=== PATIENT | male | born 1950 | race Caucasian/White ===

== ENCOUNTER → 2024-09-27 15:02 | Outpatient (REF) | payer OTHER, SELFPAY | LOC: MRI 3T 15:02 | PROVIDERS: ATTENDING PHYSICIAN Surgery; FAMILY PHYSICIAN Family Medicine | DX: R97.20 Elevated prostate specific antigen [PSA] (principal) | CPT/HCPCS: 72197; A9575 ==

== ENCOUNTER 2024-10-05 13:20 | Emergency (ER) | payer OTHER, SELFPAY ==
[2024-10-05 13:31] VITALS: BP 132/63
--- NOTE | 2024-10-05 14:38 | ED.GENMED ---
History of Present Illness
General
Chief Complaint: Skin Surface Trauma
Source: patient
Exam Limitations: none
Time Seen by Provider: 10/05/24 14:15
Nursing documentation reviewed up to this point in time: agreed with
History of Present Illness
History of Present Illness:
74-year-old male with history as documented presents with a bleeding varicose vein. Patient was taking off his boots and scratched a varicose vein on his medial right ankle and it was bleeding and he had trouble stopping it and so he came to the ER
for assessment. No other issues. He is not on blood thinners.
Past History
Past History
ED Past Medical History: CVA, GERD, HTN, NIDDM, Psychiatric (depression), Other (chronic back pain) and Other (Pericarditis with pericardial effusion requiring pericardiocentesis 2007)
Social History
Tobacco: Non-smoker
Alcohol: None
Drug: None
Personal:
Living: with family
Review of Systems
Review of Systems
All Other Systems: ROS reviewed and negative except as documented in HPI and ROS
Skin: Reports other (Bleeding varicose vein)
Phy Exam
Physical Exam
Physical Exam:
General: Well appearing and non-toxic
HEENT: protecting airway
Neck: appears supple
CV: No evidence of cyanosis
Resp: No accessory muscle use
Abd: Non-distended
Extremities: No deformities, no significant edema
Neuro: Alert
Psych: Normal affect
Skin: Punctate bleeding varicose vein right medial ankle with slow ooze no pulsatile bleeding
Scores
Heart Failure Risk
Heart Failure Risk Score: Not Applicable
Heart Score for Chest Pain Patients
STEMI patient?: Not applicable
Withdrawal Assessment of Alcohol
Withdrawal Assessment Completed?: Not applicable
Course
Vital Signs
Initial and Last Documented VS:
Initial Vital Signs
Temp Pulse Resp BP Pulse Ox
36.6 C 76 18 132/63 98
12/24/24 13:31 10/05/24 13:31 10/05/24 13:31 10/05/24 13:31 10/05/24 13:31
Last Documented Vital Signs
Temp Pulse Resp BP Pulse Ox
36.6 C 76 18 132/63 98
10/05/24 13:31 10/05/24 13:31 10/05/24 13:31 10/05/24 13:31 10/05/24 13:31
Procedures
Laceration Closure
Right Ankle:
Status of Wound: clean
Size of Wound in cm: 0.5
Description of Wound Edges: other (Bleeding varicose vein)
Preparation: cleaned with saline
Anesthesia: 1% Lidocaine with epi
Revision/Debridement: routine- no revision
Type of Closure: single layer closure
Skin Closure Material: other (3-0 Vicryl)
Number of sutures: 1
Additional information:
purse-string suture for hemostasis; clean dressing applied
MDM/Problems Addressed
Differential Diagnosis Includes:
Bleeding varicose vein
MDM/Problems Addressed:
74-year-old male presents with bleeding varicose vein. Achieved hemostasis with single pursestring suture as documented above. Clean dressing applied. Stable for discharge. Spoke about return precautions including signs of infection. All
questions answered.
*Pulse Oximetry
Patient hypoxic: no
*Critical Care Note
Total Time (30-74mins, 75-104mins- exclusive of procedures): Not Applicable
Data Reviewed
Source: patient
ED Attending Note
-
Portions of this chart may have been created with voice recognition software.� Occasional wrong word or��sound alike� substitutions may have occurred due to the inherent limitations of voice recognition software.
Discharge Plan
Departure
Patient Disposition: Home (Routine Discharge)
Date of Disposition: 10/05/24
Time of Disposition: 14:37
Patient with high blood pressure during this ER visit?: No
Discharge Problem:
Bleeding from varicose vein
Instructions: Varicose Veins (DC)
Prescriptions:
No Action
multivitamin [Daily Multiple] 1 EACH tablet
1 ea PO DAILY
mometasone [Nasonex] 17 GM spray,non-aerosol
17 gm NS PRN PRN (Reason: congestion)
aspirin 81 MG tablet,chewable
81 mg PO DAILY
lisinopril [Prinivil] 40 MG tablet
40 mg PO DAILY
quetiapine 25 MG tablet
25 mg PO HS
insulin glargine [Lantus U-100 Insulin] 100 UNIT/ML solution
30 units INJ HS
metoprolol tartrate 100 MG tablet
100 mg PO BID
selenium 200 MCG tablet
200 mcg PO QPM
hydrochlorothiazide 25 MG tablet
25 mg PO DAILY
vitamin E 400 UNIT capsule
400 units PO QPM
metformin 750 MG tablet extended release 24 hr
750 mg PO DAILY
fish oil-dha-epa 1 EACH capsule
1,200 mg PO DAILY
pregabalin 100 MG capsule
100 mg PO BID
lurasidone [Latuda] 20 MG tablet
20 mg PO DAILY
vit C,C-Ya-qhdwl-lutein-zeaxan [PreserVision AREDS-2] 1 EACH capsule
1 cap PO BID
dapagliflozin propanediol [Farxiga] 10 MG tablet
10 mg PO DAILY
evolocumab [Repatha SureClick] 140 MG/ML pen injector
140 mg INJ Q2W
buprenorphine HCl [Belbuca] 900 MCG film
900 mcg BID
exenatide microspheres [Bydureon BCise] 2 MG/0.85 ML auto-injector
2 mg INJ Q7D
oxycodone 10 MG tablet
10 mg PO PRN PRN (Reason: pain)
duloxetine 60 MG capsule,delayed release(DR/EC)
60 mg PO DAILY
sulfamethoxazole-trimethoprim 1 TABLET tablet
1 tab PO BID 4 Days Qty: 8 0RF
Activity Restrictions/Additional Instructions:
Thank you for visiting the Emergency Department at [facility].
1. Please schedule a follow up appointment as directed. Call first thing tomorrow morning to make an appointment.
2. If indicated, please take your medications as instructed and indicated on discharge paperwork.
3. If any of your symptoms do not improve, or persist, or become more severe within 6-12 hours, please return to the emergency department for further care.
4. Please return to the emergency department if you develop a headache, neck pain/stiffness, fever greater than 100.4F, chest pain, shortness of breath, persistent nausea, vomiting, slurred speech, difficulty walking, numbness/tingling, weakness,
signs of infection or any other symptoms that are worrisome to you.
Please call [phone] if you have any questions.
Interventions
Interventions:
*Risk Screen - Suicide Last Done: 10/05/24 13:31
ED-Skin Assessment Last Done: 10/05/24 14:22
Discharge Date and Time
Print Language: CUBAN
[2024-10-05 14:49] VITALS: BP 134/72
== END 2024-10-05 14:51 | disposition home or self-care (01) ==
LOC: EMR 13:20
PROVIDERS: EMERGENCY PHYSICIAN Emergency Medicine; FAMILY PHYSICIAN Family Medicine
DX: I83.891 Varicose veins of right lower extremity with other complications (principal)
CPT/HCPCS: 99283; 12001

== ENCOUNTER 2024-10-31 21:05 | Inpatient (IN) | payer OTHER, SELFPAY ==
[2024-10-31 18:09] VITALS: BP 173/78
[2024-10-31 18:31] VITALS: BMI 23.7
[2024-10-31 18:32] LABS: Glucose - Point of Care 237 mg/dl (70-99)
--- NOTE | 2024-10-31 18:34 | ED.CVA ---
History of Present Illness
General
Chief Complaint: CVA/TIA Symptoms
Source: patient and spouse
Exam Limitations: none
Time Seen by Provider: 10/31/24 18:20
Nursing documentation reviewed up to this point in time: agreed with
Onset of Stroke Symptoms
Onset of symptoms known: No
Time pt last seen normal is known: Yes
Date last time pt seen normal: 10/31/24
History of Present Illness
History of Present Illness:
74-year-old male with history of A-fib on aspirin, IDDM, HTN, Linq implant, UTI, macular degeneration right eye is here for a change in mental state. states he was his 'baseline normal' this morning but when she came home from [place] around
noon he 'started to say stuff that did not make sense, his speech was slow and he had to hold onto things to move around.'
Patient denies headache, no known trauma, denies weakness or numbness in his extremities. Denies chest pain or trouble breathing. Denies abdominal pain. Denies change in vision.
reports Had CVA in 2020, has had intermittent cognitive changes since then, followed by his neurologist in [facility]. More recently has had masticating movements of his mouth and has MRI scheduled 11/08 in [facility].
Pt denies recent fall/trauma,
Past History
Past History
ED Past Medical History: CVA, GERD, HTN, NIDDM, Psychiatric (depression), Other (chronic back pain) and Other (Pericarditis with pericardial effusion requiring pericardiocentesis 2007)
Social History
Tobacco: Non-smoker
Alcohol: None
Drug: None
Personal:
Living: with family
Review of Systems
Review of Systems
Allergies reviewed?: Yes
All Other Systems: ROS reviewed and negative except as documented in HPI and ROS
Constitutional: Denies fever
EENT: Denies sore throat
Respiratory: Denies trouble breathing
Cardiac: Denies chest pain
ABD/GI: Reports anorexia; Denies abdominal pain, nausea, vomiting or diarrhea
: Denies dysuria, frequency or difficulty voiding
Musculoskeletal: Denies edema
Skin: Reports no symptoms
Neurological: Reports other (Masticating movements of mouth); Denies dizzy, headache, weakness or numbness
Phy Exam
Physical Exam
Physical Exam:
GENERAL: No acute distress. A&Ox3.
CONSTITUTIONAL: Afebrile.
EYES: clear, conjunctivae normal
ENMT: moist mucus membranes, Pharynx nl
RESPIRATORY: Regular respirations, nonlabored, lungs clear.
CARDIOVASCULAR: Regular rate and rhythm, no murmurs, no rubs.
GI: Soft, nontender, normal BS
MUSCULOSKELETAL: Moves slowly.no edema well perfused.
SKIN: Warm, dry, pink
PSYCH: Normal mood and affect. Well kept, interactive and appropriate
NEUROLOGIC: Awake, alert and oriented. Speech is a little slow, hesitates prior to answering but answering questions appropriately. Cranials 2 through 12 intact. Finger to nose intact Strength equal throughout. Qpedrj-ai-fstw intact. No focal
neurological deficits
Course
Orders/Labs/Results
Orders:
Orders
10/31/24 18:32
CT Head W/o Iv Contrast Urgent
Comment:
Reason For Exam: change in mental state
10/31/24 18:34
CR Chest - 2 Views Urgent
Comment:
Reason For Exam: change in mental state
10/31/24 18:37
Complete Blood Count/With Diff Urgent
Comprehensive Metabolic Panel Urgent
Lactic Acid Q4H
Comment: CANCEL 2nd LACTIC ACID IF 1st LACTIC ACID IS LESS THAN 2
Blood Culture Q30M
ZABRINA Source: Blood/Venous
Specimen Description:
10/31/24 18:39
Blood Culture Q30M
ZABRINA Source: Blood/Venous
Specimen Description:
10/31/24 18:58
Urinalysis Reflex To Culture Urgent
Date Specimen was Collected: 10/31/24
Time Specimen was Collected: 18:50
10/31/24 20:25
COVID-19 Antigen Urgent
Source: Nasal Swab
Influenza A+B Rapid Molecular Urgent
ZABRINA Source: Nasal Swab
Specimen Description:
10/31/24 20:45
Admit/Transfer Patient As Directed
Co-Sign Provider:
Level of Care: Inpatient admission
Assign to:: Telemetry
Physician / Group: Zeferino
Diagnosis: Change in Mental Status
Reason for Telemetry: CVA/TIA
Date to Stop Telemetry: 11/03/24
Time to Stop Telemetry: 11:00
Reason for Hospitalization: change in mental status
Expected length of stay greater than two midnights?: Yes
ELOS- Estimated Length of Stay in days: 3
I certify the patient meets the requirements for IP care: Yes
10/31/24 20:46
PRN Pain Medication Management As Directed
May give lesser potent ordered pain med per pt: Yes
preference::
Protocol:: Medication orders for pain may be administered in a
manner that supports deferring to patient preference
when the pt is:
- Requesting an ordered lesser potent pain medication.
Least to most potent pain medications are defined
as: acetaminophen < NSAID < tramadol < opioids
(morphine, oxycodone, hydromorphone).
- Requesting a lesser dose of the same medication IF
ORDERED.
- Requesting a less intrusive route of administration
if both routes are prescribed by the provider (PO <
IV).
10/31/24 20:47
NT-proBNP Urgent
Procalcitonin Urgent
PCT Algorithmm Indication: Respiratory
10/31/24 20:52
Code Status As Directed
Resuscitation Status: Full Code
10/31/24 21:00
Flush (0.9% Sodium Chloride) [Flush (Nss)] See Dose Instructions IV PER PROTOCOL
10/31/24 22:45
Lactic Acid Q4H
Comment: CANCEL 2nd LACTIC ACID IF 1st LACTIC ACID IS LESS THAN 2
11/03/24 11:00
DC Protocol for Telemetry ONCE
Abnormal Lab Results
10/31/24 10/31/24 10/31/24
18:31 18:37 18:58
WBC 14.1 H 10^3/uL
(4.8-10.8)
RBC 3.95 L 10^6/uL
(4.70-6.10)
Hgb 11.2 L g/dL
(13.0-18.0)
Hct 33.8 L %
(39.0-52.0)
Abs Immat Gran (auto) 0.1 H 10^3/uL
(0-0.05)
Absolute Neuts (auto) 12.4 H 10^3/uL
(1.4-6.5)
Absolute Lymphs (auto) 0.7 L 10^3/uL
(1.2-3.4)
Neutrophils % 87.4 H %
(42.2-75.2)
Lymphocytes % 5.2 L %
(20.5-51.1)
Chloride 97 L mmol/L
(98-107)
Glucose 230 H mg/dl
(70-99)
Lactic Acid 2.3 H mmol/L
(0.7-2.0)
Urine Glucose 3+ A
(Negative)
SARS-CoV-2 Antigen
POC Glucose 237 H mg/dl
(70-99)
10/31/24
20:25
WBC
RBC
Hgb
Hct
Abs Immat Gran (auto)
Absolute Neuts (auto)
Absolute Lymphs (auto)
Neutrophils %
Lymphocytes %
Chloride
Glucose
Lactic Acid
Urine Glucose
SARS-CoV-2 Antigen Positive A
(Negative)
POC Glucose
10/31/24 18:37
10/31/24 18:37
Vital Signs
Initial and Last Documented VS:
Initial Vital Signs
Temp Pulse Resp BP Pulse Ox
100.1 F 95 18 173/78 95
10/31/24 18:09 10/31/24 18:09 10/31/24 18:09 10/31/24 18:09 10/31/24 18:09
Last Documented Vital Signs
Temp Pulse Resp BP Pulse Ox
100.1 F 88 17 144/58 92
10/31/24 18:09 10/31/24 21:45 10/31/24 21:45 10/31/24 21:00 10/31/24 21:00
Security Operations Engineer consulted with Physician
Security Operations Engineer consulted with physician?: Yes
Name of Physician Consulted: Shane
MDM/Problems Addressed
Differential Diagnosis Includes:
CVA, TIA, dehydration, viral illness, post covid mental change
MDM/Problems Addressed:
74-year-old male with history of A-fib on aspirin, IDDM, HTN, Linq implant, UTI, macular degeneration right eye is here for a change in mental state. states he was his 'baseline normal' this morning but when she came home from [place] around
noon he 'started to say stuff that did not make sense, his speech was slow and he had to hold onto things to move around.'
Patient denies headache, no known trauma, denies weakness or numbness in his extremities. Denies chest pain or trouble breathing. Denies abdominal pain. Denies change in vision. Pt denies recent fall/trauma.
reports he's had a mild cough. Had Covid 10/13. Had CVA in 2020, has had intermittent cognitive changes since then, followed by his neurologist in [facility]. More recently has had masticating movements of his mouth and has MRI
scheduled 11/08 in [facility].
CBC: WBC 14.1 otherwise no clinically significant abnormality
CMP: Blood sugar 230 otherwise unremarkable
U/A neg
7:45 PM:
states pt does not remember talking to his son just before they left to come to ER. She is not comfortable taking him home as 'he definitely had a change'
Head CT showing nothing acute.
patient out of bed and ambulating down hallway slowly but has to hold my hand
states slow pace is his usual but he states he feels unsteady on his feet and feels as if he would fall if I let go of his hands
Most likely viral illness with low grade fever
CXR neg.
Discussed with Dr. Lynn who examined pt
With change in mental state, ataxia, mild Leukocytosis, plan: Admit, Neuro eval and MRI
Hospitalist notified of admission.
*Critical Care Note
Total Time (30-74mins, 75-104mins- exclusive of procedures): Not Applicable
ED Attending Note
-
Portions of this chart may have been created with voice recognition software.� Occasional wrong word or��sound alike� substitutions may have occurred due to the inherent limitations of voice recognition software.
Discharge Plan
Departure
Patient Disposition: Admit
Date of Disposition: 10/31/24
Time of Disposition: 20:07
Admit to: Med/Surg
Presentation/result/management discussed w/ accepting MD/DO: Hospitalist
Condition: Fair
Discharge Problem:
Ataxia, Acute alteration in mental status
Interventions
Interventions:
*Risk Screen - Suicide Last Done: 10/31/24 18:09
*General Assessment Last Done: 10/31/24 18:09
*Neglect/Abuse Screening Last Done: 10/31/24 18:09
ED- Fall Risk Assessment Last Done: 10/31/24 18:32
*ED COVID-19 Vaccine History Last Done: 10/31/24 18:32
ED- Pulmonary Assessment Last Done: 10/31/24 18:44
ED- Neurological Assessment Last Done: 10/31/24 18:44
ED- Cardiac Assessment Last Done: 10/31/24 18:44
ED Swallowing Screen Last Done: 10/31/24 20:15
[2024-10-31 18:50] LABS: % Basophils 0.6 % (0-2); % Eosinophils 2.2 % (0-6); % Immature Granulocytes 0.4 % (0-0.5); % Lymphocytes 5.2 % (20.5-51.1); % Monocytes 4.2 % (1.7-9.3); % Neutrophils 87.4 % (42.2-75.2); Absolute Basophils 0.1 10^3/uL (0-0.2); Absolute Eosinophils 0.3 10^3/uL (0-0.7); Absolute Immature Granulocytes 0.1 10^3/uL (0-0.05); Absolute Lymphocytes 0.7 10^3/uL (1.2-3.4); Absolute Monocytes 0.6 10^3/uL (0.1-0.6); Absolute Neutrophils 12.4 10^3/uL (1.4-6.5); Hematocrit 33.8 % (39.0-52.0); Hemoglobin 11.2 g/dL (13.0-18.0); Mean Corp Hgb Conc. 33.1 g/dL (33.0-37.0); Mean Corpuscular Hgb 28.4 pg (27.0-31.0); Mean Corpuscular Volume 85.6 fL (80.0-94.0); Nucleated Red Blood Cells % 0 % (-); Platelet Count 234 10^3/uL (130-400); Red Blood Cell Count 3.95 10^6/uL (4.70-6.10); Red Cell Dist. Width 13.4 % (11.5-14.5); White Blood Cell Count 14.1 10^3/uL (4.8-10.8)
[2024-10-31 19:00] VITALS: BP 156/66
[2024-10-31 19:05] LABS: Urine Albumin Negative (Neg - Trace); Urine Bilirubin Negative (Negative); Urine Character Clear (Clear); Urine Color Yellow; Urine Glucose 3+ (Negative); Urine Ketone Negative (Negative); Urine Leukocyte Negative (Negative); Urine Nitrite Negative (Negative); Urine Occult Blood Negative (Negative); Urine Specific Gravity 1.005 (<1.030); Urine Urobilinogen Negative (Neg - 1+)
[2024-10-31 19:06] LABS: Lactic Acid 2.3 mmol/L (0.7-2.0)
[2024-10-31 19:11] LABS: ALT (SGPT) 27 U/L (0-50); AST (SGOT) 28 U/L (17-59); Albumin 3.8 g/dl (3.5-5.0); Alkaline Phosphatase 81 U/L (38-126); Blood Urea Nitrogen 17 mg/dl (9-20); Calcium 8.4 mg/dl (8.4-10.2); Carbon Dioxide 30 mmol/L (22-30); Chloride 97 mmol/L (98-107); Estimated Creatinine Clearance 96 ml/min; Glucose 230 mg/dl (70-99); Potassium 4.7 mmol/L (3.5-5.1); Sodium 136 mmol/L (135-145); Total Bilirubin 0.5 mg/dl (0.2-1.3); Total Protein 6.3 g/dl (6.3-8.2); eGFR > 60.00
[2024-10-31 20:10] VITALS: BP 142/64
--- NOTE | 2024-10-31 20:15 | HPS.HSE ---
Family Physician
-
Family Physician: Issa Gaines
Chief Complaint
-
Change in Mental Status
History of Present Illness
Patient is a 74 y/o male past medical history of prior stroke, diabetes, hypertension, hyperlipidemia, tardive dyskinesia and depression who presents with change in mental status. Additional history is obtained from patient's at the bedside.
She notes while watching the [place] game this afternoon he started saying things that did not make sense. She notes his speech seems slow and that he was having to hold onto things while walking around. Patient had COVID a few weeks ago and was
hospitalized a different hospital. notes his cough was improving but got worse last night. Patient reports increased shortness of breath. has also noted increased lower extremity edema. Patient denies fevers, sweats or chills at home but
noted to have a temp of 100.1F upon arrival to the ED.
Medical History
Past Medical History
Past Medical History: Reports Other
Additional Past Medical History:
Stroke
Diabetes Mellitus, Type II
Diabetic Neuropathy
Essential Hypertension
Hyperlipidemia
Chronic Pain with Opioid Dependence
Tardive Dyskinesia
Depression
BPH
Past Surgical History: Reports Other
Additional Past Surgical History:
TURP
Appendectomy
Cholecystectomy
Social History
Tobacco: Non-smoker
Alcohol: None
Living: With Family
Family History
Family History: Not pertinent
Allergies / Home Medications
Allergies reflects when Allergies were last updated in [employer].
Home Medications with original date entered in [employer]
Allergy/Medication List:
Allergies
Allergy/AdvReac Type Severity Reaction Status Date / Time
lamotrigine [From Lamictal] Allergy itchy, Verified 10/31/24 18:09
hives
Penicillins Allergy Unknown Verified 10/31/24 18:09
Home Medications
aspirin 81 mg chewable tablet 81 mg PO DAILY 01/29/13
buprenorphine HCl 900 mcg buccal film (Belbuca) 900 mcg BID Pain 01/17/22
dapagliflozin propanediol 10 mg tablet (Farxiga) 10 mg PO DAILY 01/17/22
evolocumab 140 mg/mL subcutaneous pen injector (Repatha SureClick) 140 mg INJ Q2W 01/17/22
exenatide microspheres 2 mg/0.85 mL subcutaneous auto-injector (Byduredom BCise) 2 mg INJ TERRELL 01/17/22
metformin 750 mg tablet,extended release 24 hr 1,500 mg PO DAILY 01/17/22
pregabalin 100 mg capsule 100 mg PO BID 01/17/22
selenium 200 mcg tablet 200 mcg PO Q48H 01/17/22
vit C 250 mg-vit E 90 mg-zinc 40 mg-copper 1 [id number]-[id number]-wlubup capsule (PreserVision AREDS-2) 1 cap PO BID 01/17/22
vitamin E 268 mg (400 unit) capsule 400 units PO Q48H 01/17/22
duloxetine 60 mg capsule,delayed release 60 mg PO DAILY 01/21/22
atorvastatin 40 mg tablet 40 mg PO HS 10/31/24
cyanocobalamin (vitamin B-12) 500 mcg tablet 500 mcg PO DAILY 10/31/24
deutetrabenazine 6 mg tablet (Austedo) 6 mg PO BID 10/31/24
duloxetine 30 mg capsule,delayed release 30 mg PO HS 10/31/24
finasteride 5 mg tablet 5 mg PO DAILY 10/31/24
hydrocodone 10 mg-acetaminophen 325 mg tablet 1 tab PO Q8HPRN PRN severe pain 10/31/24
lisinopril 40 mg tablet 40 mg PO DAILY 10/31/24
metoprolol succinate 100 mg tablet,extended release 24 hr 100 mg PO DAILY 10/31/24
therapeutic multivitamin 1 tab PO DAILY 10/31/24
trazodone 50 mg tablet 100 mg PO HS 10/31/24
vibegron 75 mg tablet (Gemtesa) 75 mg PO DAILY 10/31/24
Review of Systems
-
A 12 point ROS was completed and negative except as noted: Yes
Constitutional: Denies Fever or Chills
Respiratory: Reports Cough and Trouble Breathing
Cardiac: Denies Chest Pain or Palpitations
Neurological: Reports See HPI
Physical Exam
Vital Signs
Vital Signs
Temp Pulse Resp BP Pulse Ox
100.1 F 90 20 156/66 92
10/31/24 18:09 10/31/24 19:15 10/31/24 19:15 10/31/24 19:00 10/31/24 18:45
Physical Exam
General: Comfortable and Conversant
HEENT: Anicteric and Moist mucous membranes
Respiratory: Rales (Left Base) and Non Labored Respirations
Cardiac: S1/S2 and Regular Rhythm
GI: Soft and Non Tender
Rectal: Deferred by Provider
Musculoskeletal: No Clubbing, No Cyanosis and Other (+2 pitting edema bilateral lower extremity)
Skin: Warm and Dry
Neuro: Awake, Alert, Oriented and Nonfocal/grossly intact
Psych: Calm
Laboratory Results
-
10/31/24 18:37
10/31/24 18:37
Laboratory Results
Lactic Acid 2.3 mmol/L (0.7-2.0) H 10/31/24 18:37
Total Bilirubin 0.5 mg/dl (0.2-1.3) 10/31/24 18:37
AST 28 U/L (17-59) 10/31/24 18:37
ALT 27 U/L (0-50) 10/31/24 18:37
Alkaline Phosphatase 81 U/L (38-126) 10/31/24 18:37
Data Reviewed
-
Diagnostic Radiology: Report Reviewed by me
CT Scan: Report Reviewed by me
Lab Data: Labs Reviewed by me
Impression/Plan
-
Change in Mental Status, suspect TME due to due on-going COVID, possible Pneumonia vs recrudescence of prior stroke
-Check Procalcitonin - If positive start empiric antibiotics
-Trend Lactic Acid
-Check Brain MRI given prior history of stroke, but at this point I have low suspicion for acute stroke
-Monitor mental status
Bilateral Lower Extremity Edema
-Check BNP
-Check lower extremity Doppler
Prior Stroke
-Continue aspirin
Diabetes Mellitus, Type II
-Check HgbA1c
-Hold metformin during hospitalization
-Continue Farxiga
-Patient is also maintained on Bydureon as outpatient
-Monitor sugars and continue coverage insulin
Diabetic Neuropathy
-Continue duloxetine and pregabalin
Essential Hypertension
-Continue lisinopril and metoprolol
Hyperlipidemia
-Continue atorvastatin
Chronic Pain with Opioid Dependence
-Continue buprenorphine
Tardive Dyskinesia
-Continue Austedo
Depression
-Continue Trazodone
BPH s/p TURP
-Continue finasteride
DVT proph: Lovenox
Code Status: Full Code
[2024-10-31 20:51] LABS: COVID-19 Antigen Positive (Negative)
[2024-10-31 21:00] VITALS: BP 144/58
[2024-10-31 21:17] LABS: NT-proBNP 550 pg/ml
[2024-10-31 21:28] LABS: Procalcitonin 0.15 ng/ml (0.0-0.25)
--- NOTE | 2024-10-31 21:58 | W.PN.UPDATE ---
Update Note
Progress Note Update
Attending addendum
Patient was seen independently
74 y/o man with past medical history of:
prior stroke,
diabetes,
hypertension,
hyperlipidemia,
tardive dyskinesia
depression
presents with change in mental status. History is obtained from patient's at the bedside. She states that this afternoon he started saying things that did not make sense. He was hallucinating. She notes his speech seems slow and that he was
having to hold onto things while walking around. He had COVID a few weeks ago and was hospitalized a different hospital. notes his cough was improving but worsened last night. Patient now reports increased shortness of breath. He also has
increased lower extremity edema. He denies fevers, sweats or chills at home but noted to have a temp of 100.1F upon arrival to the ED.
Past Medical History
Stroke
Diabetes Mellitus, Type II
Diabetic Neuropathy
Essential Hypertension
Hyperlipidemia
Chronic Pain with Opioid Dependence
Tardive Dyskinesia
Depression
BPH
TURP
Appendectomy
Cholecystectomy
Physical Exam
General: Comfortable and Conversant, but confused
HEENT: Anicteric and Moist mucous membranes
Respiratory: Rales (Left Base) and Non Labored Respirations
Cardiac: S1/S2 and Regular Rhythm
GI: Soft and Non Tender
Psych: Calm
Impression/Plan
1. Change in Mental Status, differential includes: on-going COVID, possible Pneumonia vs recrudescence of prior stroke
-Check Procalcitonin - If positive start empiric antibiotics
-Trend Lactic Acid
-Check Brain MRI
2. Bilateral Lower Extremity Edema - new issue
-Check BNP
-Check lower extremity Doppler
Please see PA note for full details on
Prior Stroke
Diabetes Mellitus, Type II
Diabetic Neuropathy
Essential Hypertension
Hyperlipidemia
Chronic Pain with Opioid Dependence
Tardive Dyskinesia
Depression
BPH s/p TURP
DVT proph: Lovenox
Code Status: Full Code
[2024-10-31 22:00] VITALS: BP 141/57
[2024-10-31 23:00] VITALS: BP 133/61
[2024-10-31] MEDS: FLUSH (NSS) 1 FLUSH IV (23:27)
[2024-10-31 23:53] LABS: Lactic Acid 0.7 mmol/L (0.7-2.0)
[2024-11-01] VITALS: BP 125/58
[2024-11-01 00:35] VITALS: BMI 22.9
[2024-11-01 00:45] VITALS: BP 133/60
[2024-11-01 00:56] VITALS: BMI 23.7
[2024-11-01] MEDS: TYLENOL 650 MG PO (01:02)
[2024-11-01] MEDS: DESYREL 100 MG PO (01:03)
[2024-11-01] MEDS: LIPITOR 40 MG PO (01:03)
[2024-11-01] MEDS: CYMBALTA DELAYED RELEASE 30 MG PO (01:03)
--- NOTE | 2024-11-01 02:04 | PTCARENOTE ---
Received from ED into room 2121. AAOx3, slow speech. VSS. Able to stand pivot to bed with assist x1. Able to participate in admission questions. +2 b/l LE edema. Medications administered, see DEC. Oriented to room. No complaints at this time, call
yeboah within reach.
[2024-11-01 02:22] VITALS: BMI 22.9
[2024-11-01] MEDS: NON-FORMULARY ITEM 6 MG PO (03:48)
[2024-11-01 05:06] VITALS: BMI 23.0
[2024-11-01 06:58] VITALS: BP 132/67
[2024-11-01 07:24] LABS: Glucose - Point of Care 140 mg/dl (70-99)
[2024-11-01 07:34] LABS: Hematocrit 30.4 % (39.0-52.0); Mean Corp Hgb Conc. 32.9 g/dL (33.0-37.0); Mean Corpuscular Hgb 28.6 pg (27.0-31.0); Mean Corpuscular Volume 86.9 fL (80.0-94.0); Mean Platelet Volume 9.4 fL (7.4-10.4); Platelet Count 207 10^3/uL (130-400); Red Cell Dist. Width 13.4 % (11.5-14.5); White Blood Cell Count 9.7 10^3/uL (4.8-10.8)
[2024-11-01 08:00] LABS: Blood Urea Nitrogen 14 mg/dl (9-20); Calcium 8.5 mg/dl (8.4-10.2); Carbon Dioxide 31 mmol/L (22-30); Chloride 98 mmol/L (98-107); Estimated Creatinine Clearance 95 ml/min; Glucose 119 mg/dl (70-99); HDL Cholesterol 34 mg/dl; LDL Cholesterol, Calculated 0 mg/dl; Potassium 3.6 mmol/L (3.5-5.1); Sodium 136 mmol/L (135-145); Total Cholesterol 50 mg/dl (50-199); Triglyceride 84 mg/dl (10-149); Very Low Density Lipoprotein 16 mg/dl (0-30); eGFR > 60.00
--- NOTE | 2024-11-01 08:11 | W.PN.HOSP.TC ---
Today's Communication/Plan
-
see plan
Assessment / Plan
Assessment / Plan
Mr. Felipe Mejia is a 74 yo man with hx CVA, DM, HTN, HLD, Tardive sydkinesia, depression, recent Covid 3 weeks ago (hospitalized at [facility]) presents to the ER with confusion, hallucinations, slow speech and difficulty ambulating.
HEAD CT
IMPRESSION:
There are no acute intracranial abnormalities.
There is old 13 mm lacunar infarct involving the head of the caudate and anterior limb of the internal capsule on the left
There is old 3 mm lacunar infarct in the left putamen
There is old 6 mm lacunar infarct in the right putamen
There is old 3 mm lacunar infarct in the right globus pallidus
There is moderate diffuse cortical atrophy with mild nonspecific white matter changes as described above.
CXR
IMPRESSION:
No active cardiopulmonary disease.
LE US
IMPRESSION:
No sonographic evidence for lower extremity venous thrombosis.
Recent covid diagnosis now with likely rebound disease
TME 2/2 above
-procalcitonin 0.15 - will hold off on abx
-Check Brain MRI given prior history of stroke, but at this point I have low suspicion for acute stroke
-Monitor mental status
-PT/OT/ST
Bilateral Lower Extremity Edema
-LE US without DVT - patient states this is chronic
Prior Stroke
-Continue aspirin
Diabetes Mellitus, Type II
-Check HgbA1c
-Hold metformin during hospitalization
-Continue Farxiga
-Patient is also maintained on Bydureon as outpatient
-Monitor sugars and continue coverage insulin
Diabetic Neuropathy
-Continue duloxetine and pregabalin
Essential Hypertension
-Continue lisinopril and metoprolol
Hyperlipidemia
-Continue atorvastatin
Chronic Pain with Opioid Dependence
-Continue buprenorphine
Tardive Dyskinesia
-Continue Austedo
Depression
-Continue Trazodone
BPH s/p TURP
-Continue finasteride
DVT proph: Lovenox
Code Status: Full Code
Anticipated Discharge: Within 24 hours
Subjective/Interval History
-
Date of Service: November 01, 2024
patient's main complaint is chronic pain in low back and joints (has not yet had norco today)
otherwise he denies feeling confused, does not fully remember events of yesterday
no focal weakness/numbness or tingling
Objective Data
-
Labs:
Laboratory Results
11/01/24
06:21
WBC 9.7
Hgb 10.0 L
Hct 30.4 L
Plt Count 207
Sodium 136
Potassium 3.6
Chloride 98
Carbon Dioxide 31 H
BUN 14
Creatinine 0.7
Glucose 119 H
Calcium 8.5
Vital Signs:
Vital Signs
Temp Pulse Resp BP Pulse Ox
98.3 F 78 27 132/67 95
11/01/24 06:58 11/01/24 06:58 10/31/24 22:45 11/01/24 06:58 11/01/24 06:58
I&O
10/31/24 11/01/24 11/02/24
06:59 06:59 06:59
Intake Total 480 / 480
Output Total 1050 / 1050
Balance -570 / -570
Review of Systems
-
History Source: Patient
All other systems: Reviewed and negative
Physical Exam
-
General: No Apparent Distress
HEENT: PERRLA
Respiratory: Clear to Auscultation; Negative Wheezes
Cardiac: Regular Rhythm and S1/S2
GI: Soft and Nontender
Musculoskeletal: No Edema
Neuro: AO x 3
Psych: Calm
Data Reviewed
-
Diagnostic Radiology: Report Reviewed by me
Labs: Labs Reviewed by me
[2024-11-01] MEDS: NOVOLOG FLEXPEN-MODERATE RESISTANCE SC (08:34)
[2024-11-01 09:07] LABS: Glycohemoglobin (HgbA1c) 6.6 % (4.0-5.6)
[2024-11-01] MEDS: NON-FORMULARY ITEM 75 MG PO (09:31)
[2024-11-01] MEDS: LYRICA 100 MG PO (09:32)
[2024-11-01] MEDS: NORCO 5/325 2 TABLET PO (09:32)
[2024-11-01] MEDS: PROSCAR 5 MG PO (09:32)
[2024-11-01] MEDS: LOW STRENGTH ASPIRIN 81 MG PO (09:33)
[2024-11-01] MEDS: TOPROL XL 100 MG PO (09:33)
[2024-11-01] MEDS: ZESTRIL 40 MG PO (09:33)
[2024-11-01] MEDS: FARXIGA 10 MG PO (09:33)
[2024-11-01] MEDS: MUCINEX 600 MG PO (09:33)
[2024-11-01] MEDS: CYMBALTA DELAYED RELEASE 60 MG PO (09:33)
[2024-11-01 10:58] VITALS: BP 148/66
--- NOTE | 2024-11-01 11:34 | PTOTSP ---
Speech Therapy: Oral/pharyngeal swallowing is considered normal. Recommend regular diet and thin liquids. The patient demonstrates mild dysarthria with articulatory imprecision and slow rate of speaking. Moderate cognitive-linguistic deficits in
areas of memory, attention, language and abstract reasoning. Unclear if current status is baseline or significant change. ST to follow to monitor results of pending MRI. Will follow for speech/language/cognitive treatment as needed.
[2024-11-01 11:58] LABS: Glucose - Point of Care 202 mg/dl (70-99)
--- NOTE | 2024-11-01 12:31 | W.DCSUMMARY ---
Discharge Summary
Discharge Data
Date of Admission: 10/31/24
Date of Discharge: 11/01/24
-
Pending Results: No
Hospital Course
Discharging Physician : Dr. Shanda Aviles
Disposition : Home with VN
Primary care physician : Dr. Issa Gaines
Principal Discharge diagnosis : TME 2/2 Rebound Covid-19
Hospital Course :
Mr. Felipe Mejia is a 74 yo man with hx CVA, DM, HTN, HLD, Tardive dyskinesia, depression, recent Covid 3 weeks ago (hospitalized at [facility]SH) presents to the ER with confusion, hallucinations, slow speech and difficulty ambulating. Triage VS stable.
Labs with WBC 14, Creatinine 0.7, Glucose 230, lactate 2.3, procalcitonin 0.15. Antigen Covid testing positive. He was admitted to medicine for further monitoring of TME thought 2/2 rebound Covid-19 versus acute CVA. MRI following morning without
acute abnormality. His mentation returned to baseline. Lactic acidosis and leukocytosis resolved without initiation of antibiotics. He worked with PT and OT and is discharged with home VN.
Of note, patient has chronic b/l LE swelling, LE US without DVT.
Time spent on discharge was 31 minutes.
Important imaging findings :
HEAD CT
IMPRESSION:
There are no acute intracranial abnormalities.
There is old 13 mm lacunar infarct involving the head of the caudate and anterior limb of the internal capsule on the left
There is old 3 mm lacunar infarct in the left putamen
There is old 6 mm lacunar infarct in the right putamen
There is old 3 mm lacunar infarct in the right globus pallidus
There is moderate diffuse cortical atrophy with mild nonspecific white matter changes as described above.
CXR
IMPRESSION:
No active cardiopulmonary disease.
LE US
IMPRESSION:
No sonographic evidence for lower extremity venous thrombosis.
Brain MRI:
IMPRESSION:
No acute intracranial abnormality noted.
Moderate global parenchymal volume loss with sequelae of mild small vessel ischemic disease and prior bilateral lacunar infarctions within the basal ganglia.
There is slightly asymmetric volume loss within the left caudate head which may be sequelae of prior vascular insults.
Procedure findings :
Discharge Plan
-
Patient Disposition: Home with Home Care
Discharge Diagnosis/Procedures: Rebound Covid-19 with acute confusion
Diet: Regular
Activity: As tolerated
Driving Restrictions: As prior to admission
Bathing Restrictions: None
Other Services: VN, PT and OT
Referrals:
Issa Gaines MD [Family Provider] - in less than 1 week
Prescriptions:
New
guaifenesin 600 mg Tablet Extended Release 12hr
600 mg PO Q12 Qty: 30 0RF
Continued
aspirin 81 MG tablet,chewable
81 mg PO DAILY
selenium 200 MCG tablet
200 mcg PO Q48H
vitamin E 400 UNIT capsule
400 units PO Q48H
metformin 750 MG tablet extended release 24 hr
1,500 mg PO DAILY
pregabalin 100 MG capsule
100 mg PO BID
PreserVision AREDS-2 1 EACH capsule
1 cap PO BID
dapagliflozin propanediol [Farxiga] 10 MG tablet
10 mg PO DAILY
Repatha SureClick 140 MG/ML pen injector
140 mg INJ Q2W
buprenorphine HCl [Belbuca] 900 MCG film
900 mcg buccal BID
Bydureon BCise 2 MG/0.85 ML auto-injector
2 mg INJ TERRELL
duloxetine 60 MG capsule,delayed release(DR/EC)
60 mg PO DAILY
atorvastatin 40 mg Tablet
40 mg PO HS
trazodone 50 mg Tablet
100 mg PO HS
metoprolol succinate 100 mg Tablet Extended Release 24 Hr
100 mg PO DAILY
therapeutic multivitamin Tablet
1 tab PO DAILY
hydrocodone-acetaminophen 10-325 mg Tablet
1 tab PO Q8HPRN PRN (Reason: severe pain)
cyanocobalamin (vitamin B-12) 500 mcg Tablet
500 mcg PO DAILY
lisinopril 40 mg Tablet
40 mg PO DAILY
finasteride 5 mg Tablet
5 mg PO DAILY
duloxetine 30 mg Capsule,Delayed Release(Dr/Ec)
30 mg PO HS
Austedo 6 mg Tablet
6 mg PO BID
Gemtesa 75 mg Tablet
75 mg PO DAILY
Discharge Orders:
Discharge Patient (As Directed); Ordered 11/01/24
Ordered By: Shanda Aviles
Discharge Date and Time
Print Language: CUBAN
[2024-11-01] MEDS: NOVOLOG FLEXPEN-MODERATE RESISTANCE 3 UNITS SC (12:34)
[2024-11-01] MEDS: OCEAN, SALINE MIST 1 SPRAYS NASAL (12:34)
--- NOTE | 2024-11-01 14:20 | W.DS.TRANS ---
DC Summary - Booth Operator
-
Discharge Instructions:
Discharge Diagnosis/Procedures Rebound Covid-19 with acute confusion
Diet Regular
Activity As tolerated
Driving Restrictions As prior to admission
Bathing Restrictions None
Other Services VN,PT,OT
Instructions:
Stand-Alone Forms:
Changes to Home Medications: Yes
Discharge Medications:
DC Medications w/original date entered in [facility]
aspirin 81 mg chewable tablet 81 mg PO DAILY 01/29/13
buprenorphine HCl 900 mcg buccal film (Belbuca) 900 mcg buccal BID Pain 01/17/22
dapagliflozin propanediol 10 mg tablet (Farxiga) 10 mg PO DAILY 01/17/22
evolocumab 140 mg/mL subcutaneous pen injector (Repatha SureClick) 140 mg INJ Q2W 01/17/22
exenatide microspheres 2 mg/0.85 mL subcutaneous auto-injector (Bydure[employer] BCise) 2 mg INJ TERRELL 01/17/22
metformin 750 mg tablet,extended release 24 hr 1,500 mg PO DAILY 01/17/22
pregabalin 100 mg capsule 100 mg PO BID 01/17/22
selenium 200 mcg tablet 200 mcg PO Q48H 01/17/22
vit C 250 mg-vit E 90 mg-zinc 40 mg-copper 1 [id number] capsule (PreserVision AREDS-2) 1 cap PO BID 01/17/22
vitamin E 268 mg (400 unit) capsule 400 units PO Q48H 01/17/22
duloxetine 60 mg capsule,delayed release 60 mg PO DAILY 01/21/22
atorvastatin 40 mg tablet 40 mg PO HS 10/31/24
cyanocobalamin (vitamin B-12) 500 mcg tablet 500 mcg PO DAILY 10/31/24
deutetrabenazine 6 mg tablet (Austedo) 6 mg PO BID 10/31/24
duloxetine 30 mg capsule,delayed release 30 mg PO HS 10/31/24
finasteride 5 mg tablet 5 mg PO DAILY 10/31/24
hydrocodone 10 mg-acetaminophen 325 mg tablet 1 tab PO Q8HPRN PRN severe pain 10/31/24
lisinopril 40 mg tablet 40 mg PO DAILY 10/31/24
metoprolol succinate 100 mg tablet,extended release 24 hr 100 mg PO DAILY 10/31/24
therapeutic multivitamin 1 tab PO DAILY 10/31/24
trazodone 50 mg tablet 100 mg PO HS 10/31/24
vibegron 75 mg tablet (Gemtesa) 75 mg PO DAILY 10/31/24
guaifenesin 600 mg tablet, extended release 12 hr 600 mg PO Q12 #30 tabs 11/01/24
Home Medication Changes
addition of Mucinex
Pending Results: No
[2024-11-01 15:02] VITALS: BP 154/70
--- NOTE | 2024-11-01 15:06 | CM ---
patient seen at bedside with
IA completed. CM consults completed
Advanced directives given to patient, VN
Patient current with [facility] - referral added in [facility].
Patient will be returning to their home at [facility] on (notified HH): [address] [id number]
Lives with in 2 story home, 2 steps to enter, flight 2nd floor
PLOF: Independent
PCP: Issa Gaines
Pharmacy: [facility]
PLAN: Home, [facility]
--- NOTE | 2024-11-01 15:06 | PTOTSP ---
pt currently requires no assistance to complete simple ADLs, functional ambulation, transfers with no assistance. no acute OT needs identifed at this time, will sign off.
== END 2024-11-01 15:28 | disposition home health service (06) | DRG 177 ==
LOC: 2 NORTH 21:05
PROVIDERS: Physician Assistant Medical; Registered Nurse; ADMITTING PHYSICIAN Internal Medicine; ATTENDING PHYSICIAN Student in an Organized Health Care Education/Training Program; EMERGENCY PHYSICIAN Emergency Medicine; FAMILY PHYSICIAN Family Medicine
DX: U07.1 COVID-19 (principal); G92.8 Other toxic encephalopathy; F11.20 Opioid dependence, uncomplicated; E11.40 Type 2 diabetes mellitus with diabetic neuropathy, unspecified; E78.5 Hyperlipidemia, unspecified; F32.A Depression, unspecified; I10 Essential (primary) hypertension; I48.91 Unspecified atrial fibrillation; K21.9 Gastro-esophageal reflux disease without esophagitis; N40.0 Benign prostatic hyperplasia without lower urinary tract symptoms; G24.01 Drug induced subacute dyskinesia; G89.29 Other chronic pain; Z88.0 Allergy status to penicillin; Z79.82 Long term (current) use of aspirin; Z79.84 Long term (current) use of oral hypoglycemic drugs; Z79.899 Other long term (current) drug therapy; Z86.73 Personal history of transient ischemic attack (TIA), and cerebral infarction without residual deficits
CPT/HCPCS: 70450; 70551; 71046; 80048; 80053; 80061; 81003; 82962; 83036; 83605; 83880; 84145; 85025; 85027; 87040; 87502; 87811; 92523; 92610; 93970; 97163; 97165; 97530; 99285